=== PATIENT | male | born 1995 | race Caucasian/White ===

== ENCOUNTER 2016-08-09 19:37 | Emergency (ER) | payer OTHER ==
[2016-08-09 19:57] VITALS: BP 121/69
--- NOTE | 2016-08-09 20:22 | UC ---
Abdominal Pain Male HPI - HPI Summary HPI Summary: upper right abd pain for 2d. Not intolerable, was able to do swimming class today. Good appetite. No fever, no vomiting or diarrhea. No injury, though did play in a rough basketball game 2d ago and dislocated his right shoulder. Hurts mainly to move around, feels fine when sitting still. - History of Current Complaint Chief Complaint: UCAbdominalPain Stated Complaint: ABD PAIN Time Seen by Provider: 08/09/16 20:04 Hx Obtained From: Patient Onset/Duration: Gradual Onset Timing: Constant Severity Initially: Mild Severity Currently: Mild Location: Discrete At: RUQ Radiates: No Character: Aching, Dull Aggravating Factor(s):: Movement Alleviating Factor(s): Rest, Position - sitting in chair Associated Signs And Symptoms: Negative: Diaphoresis, Fever, Cough, Dizzy, Back Pain, Constipation, Blood in Stool, Urinary Symptoms, Decreased Appetite, Nausea , Vomiting, Diarrhea - Risk Factors Testicular Torsion: Negative Cardiac Risk Factors: Negative - Allergies/Home Medications Allergies/Adverse Reactions: Allergies Allergy/AdvReac Type Severity Reaction Status Date / Time No Known Allergies Allergy Verified 08/08/15 12:56 PMH/Surg Hx/FS Hx/Imm Hx Previously Healthy: Yes - Surgical History Surgical History: Yes Surgery Procedure, Year, and Place: R shoulder - Family History Known Family History: Positive: Unknown - Social History Occupation: Student Lives: Alone - dorm Alcohol Use: None Substance Use Type: None Smoking Status (MU): Never Smoked Tobacco Review of Systems Constitutional: Negative Skin: Negative Eyes: Negative ENT: Negative Respiratory: Negative Cardiovascular: Negative Gastrointestinal: Abdominal Pain Genitourinary: Negative Motor: Negative Neurovascular: Negative Musculoskeletal: Negative Neurological: Negative Psychological: Negative All Other Systems Reviewed And Are Negative: Yes Physical Exam Triage Information Reviewed: Yes Appearance: Well-Appearing, No Pain Distress, Well-Nourished Vital Signs: Initial Vital Signs Temp 99.0 F 08/09/16 19:49 Pulse 70 08/09/16 19:49 Resp 16 08/09/16 19:49 BP 121/69 08/09/16 19:49 Pulse Ox 99 08/09/16 19:49 Vital Signs Reviewed: Yes Eye Exam: Normal ENT Exam: Normal Neck exam: Normal Respiratory Exam: Normal Cardiovascular Exam: Normal Abdomen Description: Positive: Soft, Other: - mild RUQ and lateral abdominal pain. No RLQ tenderness. No rebound or guarding. Pain seems muscular in nature.. Negative: CVA Tenderness (R), CVA Tenderness (L), Distended, Guarding , Hernia @, Hepatomegaly, McBurney's Point Tenderness, Peritoneal Signs, Pulsatile Mass, Splenomegaly Musculoskeletal Exam: Normal Neurological Exam: Normal Psychological Exam: Normal Skin Exam: Normal Diagnostics - Laboratory Diagnostic Studies Completed/Ordered: U/A dip normal Abd Pain Male Course/Dx - Differential Dx/Clinical Impression Differential Diagnosis/HQI/PQRI: Appendicitis, Renal Colic Provider Diagnoses: abdominal pain Discharge - Discharge Plan Condition: Stable Disposition: HOME Patient Education Materials: Acute Abdominal Pain (ED) Referrals: Non Staff,Doctor [Primary Care Provider] - Additional Instructions: IF your pain worsens, particularly if you have a fever over 100.5 degrees, or begin vomiting, you should go to the ER for further evaluation. The scan that is required to diagnose appendicitis is a CT scan that utilizes intravenous dye. We can't do that test at Urgent Care, but any ER can do it. Take ibuprofen or Tylenol for pain and put heat on it tonight. If it gets better, then continue this treatment until it's gone.
[2016-08-10 10:44] LABS: Hematocrit 40 % (42-52); Hemoglobin 14.2 g/dl (14.0-18.0); Mean Corpuscular HGB Conc 35 g/dl (31-36); Mean Corpuscular Hemoglobin 31 pg (27-31); Mean Corpuscular Volume 88 fL (80-94); Mean Platelet Volume 10 um3 (7.4-10.4); Red Cell Distribution Width 13 % (10.5-15); White Blood Count 7.7 10^3/ul (3.5-10.8)
== END 2016-08-09 20:36 | disposition home or self-care (01) ==
LOC: UCCORT 19:37
DX: R10.11 Right upper quadrant pain (principal)
CPT/HCPCS: 36415; 85025; 99211; G0463